=== PATIENT | female | born 1955 | race Caucasian/White ===

== ENCOUNTER 2017-02-06 12:48 | Emergency (ER) | payer BC ==
[~2017-02-06] VITALS: Ht 160 cm; Wt 68.2 kg
[2017-02-06 12:57] VITALS: BP 133/71; TEMP 98.6
[2017-02-06] MEDS ORDERED: ASPIRIN 81M81 MG/TA2 PO (13:00)
[2017-02-06] MEDS ORDERED: NORCO 325 MG-51 TAB PO (14:43)
[2017-02-06 14:47] LABS: BASO # 0.1 (0.0-0.2); BASO % 0.8 % (0.0-2.0); EOS # 0.2 (0.0-0.7); EOS % 2.2 % (0-4.0); GRAN # 5.9 (1.4-6.5); GRAN % 55.6 % (42.2-75.2); HEMATOCRIT 41.3 % (37.0-47.0); HEMOGLOBIN 14.2 g/dl (12.5-16.0); LYMPH # 3.8 (1.2-3.4); LYMPH % 35.7 % (20.0-51.0); MEAN CELL VOLUME 90 fl (80.0-100.0); MEAN CORPUSCULAR HEMOGLOBIN 31 pg (27.0-31.0); MEAN CORPUSCULAR HGB CONC 34 g/dl (33.0-37.0); MEAN PLATELET VOLUME 11.3 fl (7.4-10.4); MONO # 0.6 (0.1-0.6); MONO % 5.4 % (1.7-9.3); PLATELET COUNT 250 K/mm3 (130-400); RED BLOOD COUNT 4.57 M/mm3 (4.10-5.30); REDCELL DISTRIBUTION WIDTH-CV 13.1 % (11.5-14.5); WHITE BLOOD COUNT 10.7 K/mm3 (4.8-10.8)
[2017-02-06 15:10] VITALS: PULSE 71
[2017-02-06 15:11] LABS: ERYTHROCYTE SEDIMENTATION RATE 7 mm/hr (0-30)
== END 2017-02-06 15:08 | disposition home or self-care (01) ==
LOC: COL.ER 12:48
PROVIDERS: Physician Assistant
DX: M54.32 Sciatica, left side (principal); F17.210 Nicotine dependence, cigarettes, uncomplicated; Z90.49 Acquired absence of other specified parts of digestive tract; Z79.82 Long term (current) use of aspirin
CPT/HCPCS: J1170; J2405

== ENCOUNTER → 2018-12-20 | Outpatient (CLI) | payer BC ==
[~2018-12-20] MED LIST: ASPIRIN 81M81 MG/TA2 PO; NORCO 325 MG-51 TAB PO
== END ==
LOC: COL.RAD 10:04
DX: M48.061 Spinal stenosis, lumbar region without neurogenic claudication (principal); Z98.890 Other specified postprocedural states; Z87.39 Personal history of other diseases of the musculoskeletal system and connective tissue
CPT/HCPCS: A9585